=== PATIENT | male | born 1965 | race Caucasian/White ===

== ENCOUNTER 2020-01-01 14:30 | Outpatient (CLI) | payer BC, OTHER, SELFPAY ==
--- NOTE | ~2020-01-01 | CT_ITS ---
EXAMINATION: CT chest wo con DATE: 01/01/2020 15:04 INDICATION: Solitary pulmonary nodule TECHNIQUE: Computed tomography (CT) of the chest was performed without intravenous contrast. The dose -length product (DLP) was 391.54 mGy-cm. Automated exposure control and iterative reconstruction tech nique were employed. COMPARISON: 11/10/2015, 03/14/2009 FINDINGS: There is a chronic calcified nodule of the right upper lobe without significant change. A s table 5 mm nodule is present in the left lower lobe. No new or suspicious pulmonary nodule is identi fied. The lungs are free of focal airspace opacities. There is no pleural effusion or pneumothorax. N o pathologically enlarged thoracic lymph nodes are identified. The heart size is normal. There is mod erate thoracic spondylosis. IMPRESSION: 1. Stable pulmonary nodules, consistent with old granulomatous disease. Reviewed, dictated and finalized at location A.
== END 2020-01-01 14:31 | disposition home or self-care (01) ==
PROVIDERS: PCP Family Medicine; Visit Provider Family Medicine
DX: R91.8 Other nonspecific abnormal finding of lung field (principal)
CPT/HCPCS: 71250

== ENCOUNTER 2022-08-16 01:28 | Day surgery (SDC) | payer BC, OTHER, SELFPAY ==
[2022-08-08 13:37] VITALS: BMI 42.5
--- NOTE | 2022-08-15 15:09 | PM.HPGS ---
History of Present Illness History of Present Illness Consent: Risks, benefits, and alternatives have been discussed and questions answered. Patient agrees to proceed with procedure. Chief complaint: neoplasm screening & history of colon polyps Narrative: Nikita Smith is a 56 year old male Referred for colon cancer screening. about 4 years ago he had 4 polyps removed . He has no gastrointestinal complaints at this time. Review of Systems Review of Systems: All systems reviewed & are unremarkable except as noted in HPI and below PMFSH Past Medical History Medical History Abnormal colonoscopy Benign essential HTN Hypothyroidism (acquired) Mixed hyperlipidemia LUIS ANTONIO (obstructive sleep apnea) Pulmonary nodule Skin tag of perianal region Surgical History Surgical History H/O hemorrhoidectomy Family History Family History Mother Family history of premature coronary heart disease, Onset Age: 46 Hypertension Patient's mother is Father Cerebrovascular accident, Onset Age: 59 Patient's father is Social History Social History Social History: Smoking status: Never smoker Second hand tobacco smoke exposure: No Alcohol intake: current Alcohol use details: occasional - once a week Substance use: never Substance use type: does not use Living arrangements: with family Gender identity (if verbalized by the patient): Male Sexual Orientation (if Verbalized by the Patient): Straight or Heterosexual Spiritual care concerns: No Meds Home Medications and Allergies Home Medications Medication Instructions Recorded Confirmed Type vitamin B complex 1 tablet PO DAILY 08/21/21 08/08/22 History levothyroxine 50 mcg tablet 50 mcg PO DAILY #90 tabs 09/22/21 08/16/22 Rx irbesartan 300 1 tablet PO DAILY #90 tabs 07/03/22 08/08/22 Rx mg-hydrochlorothiazide 12.5 mg tablet gabapentin 100 mg capsule 100 mg PO DAILY 08/08/22 08/08/22 History montelukast 10 mg tablet 10 mg PO DAILY 08/08/22 08/08/22 History rosuvastatin 10 mg tablet 10 mg PO DAILY 08/08/22 08/08/22 History Allergies Allergy/AdvReac Type Severity Reaction Status Date / Time No Known Allergies Allergy Verified 08/16/22 06:20 Exam Resp: Auscultation: clear to auscultation bilaterally Cardio: Rate: regular rate Rhythm: regular rhythm GI: GI Palp: Yes Soft to palpation and No Tenderness to palpation present (GI) Assessment and Plan Assessment and plan (1) Colon cancer screening: Code(s): Z12.11 - Encounter for screening for malignant neoplasm of colon Status: Acute Assessment and Plan: Colonoscopy with possible biopsy or polypectomy or cautery or injection of substances.
[2022-08-16 06:21] VITALS: BP 143/84; PULSE 67; RESP 20; TEMP 36.4; O2SAT 95
[2022-08-16] MEDS: LACTATED RINGERS 1,000 ML 150 ML IV CONT (06:39)
--- NOTE | 2022-08-16 07:00 | WPDANESEPPF ---
Anes - Initial Pre Proc Eval Procedure: Operation Date: 08/16/22 07:30 Proposed Procedures p Screening Colonoscopy - Luis Jeffries MD Date/Time: 08/16/22 07:00 Surgeon: Luis Jeffries MD Pre Op Diagnosis: neoplasm screening & history of colon polyps Patient Data Age: 56 Gender: M Height: 1.83 m Weight: 142.6 kg Last Vital Signs Temp 97.5 F L 08/16/22 06:21 Pulse 67 08/16/22 06:21 Resp 20 08/16/22 06:21 BP 143/84 H 08/16/22 06:21 Pulse Ox 95 08/16/22 06:21 O2 Del Method Room Air 08/16/22 06:21 Allergies Allergy/AdvReac Type Severity Reaction Status Date / Time No Known Allergies Allergy Verified 08/16/22 06:20 Home Medications Medication Instructions Recorded Confirmed Type vitamin B complex 1 tablet PO DAILY 08/21/21 08/08/22 History levothyroxine 50 mcg tablet 50 mcg PO DAILY #90 tabs 09/22/21 08/16/22 Rx irbesartan 300 1 tablet PO DAILY #90 tabs 07/03/22 08/08/22 Rx mg-hydrochlorothiazide 12.5 mg tablet gabapentin 100 mg capsule 100 mg PO DAILY 08/08/22 08/08/22 History montelukast 10 mg tablet 10 mg PO DAILY 08/08/22 08/08/22 History rosuvastatin 10 mg tablet 10 mg PO DAILY 08/08/22 08/08/22 History Patient hx anesthesia problems: none Family hx anesthesia problems: none Results Review: All pre-operative results and documents have been reviewed as part of the pre-operative evaluation. [facility] Past Medical History Medical History (Updated 08/15/22 @ 15:10 by Luis Jeffries MD) Abnormal colonoscopy Benign essential HTN Hypothyroidism (acquired) Mixed hyperlipidemia LUIS ANTONIO (obstructive sleep apnea) Pulmonary nodule Skin tag of perianal region Surgical History Surgical History H/O hemorrhoidectomy Family History Family History Mother Family history of premature coronary heart disease, Onset Age: 46 Hypertension Patient's mother is Father Cerebrovascular accident, Onset Age: 59 Patient's father is Social History Social History (Updated 07/03/22 @ 16:36 by Christin Albrecht) Social History: Smoking status: Never smoker Second hand tobacco smoke exposure: No Alcohol intake: current Alcohol use details: occasional - once a week Substance use: never Substance use type: does not use Living arrangements: with family Gender identity (if verbalized by the patient): Male Sexual Orientation (if Verbalized by the Patient): Straight or Heterosexual Spiritual care concerns: No Anes - Eval Final PreProcedure Day of Procedure 08/16/22 07:00 Patient weight: morbidly obese Heart: regular rate and rhythm Lungs: clear to auscultation Airway: Mallampati scale class III Neurological: alert and oriented Last oral intake: >/= 8 hours ASA classification: III Emergent: no Anesthetic plan: proceed Anesthesia type and monitoring: general GIVS and standard monitoring Results Review: All pre-operative results and documents have been reviewed as part of the pre-operative evaluation. Informed Consent: The patient's anesthetic plan and its attendant risks and benefits were discussed with the patient/family/POA. Questions were solicited and answers provided to the satisfaction of the patient/family/POA.
[2022-08-16] MEDS: SIMETHICONE ORAL SUSPENSION 20 MG/0.3 ML 30 ML BOTTLE 0.6 ML IRRIGATION (07:34)
[2022-08-16 07:42] VITALS: BP 122/78; PULSE 71; RESP 15; O2SAT 95
[2022-08-16 07:52] VITALS: BP 120/75; PULSE 66; RESP 25; O2SAT 95
[2022-08-16 08:02] VITALS: BP 132/82; PULSE 67; RESP 22; O2SAT 98
== END 2022-08-16 08:16 | disposition home or self-care (01) ==
PROVIDERS: PCP Family Medicine; Visit Provider Internal Medicine Gastroenterology
PROC: 0DJD8ZZ Inspection of Lower Intestinal Tract, Via Natural or Artificial Opening Endoscopic (ICD-10-PCS; CPT 45378; principal; 2022-08-16 07:30)
DX: Z12.11 Encounter for screening for malignant neoplasm of colon (principal); D12.4 Benign neoplasm of descending colon; D12.5 Benign neoplasm of sigmoid colon; I10 Essential (primary) hypertension; E03.9 Hypothyroidism, unspecified; E78.5 Hyperlipidemia, unspecified; G47.33 Obstructive sleep apnea (adult) (pediatric)
CPT/HCPCS: 45380; 45385; 88305; J2370; J2704; J7120

== ENCOUNTER 2023-06-11 14:25 | Outpatient (CLI) | payer BC, OTHER, SELFPAY ==
[2023-06-11 15:34] LABS: SARS-CoV-2 RNA PCR Negative (Negative)
== END 2023-06-11 14:26 | disposition home or self-care (01) ==
PROVIDERS: PCP Family Medicine; Visit Provider Physician Assistant
DX: J02.9 Acute pharyngitis, unspecified (principal)
CPT/HCPCS: 87635

== ENCOUNTER 2023-12-11 12:41 | Outpatient (CLI) | payer BC, OTHER, SELFPAY ==
[2023-12-11 13:32] LABS: Influenza A QL RT-PCR Negative (Negative); Influenza B QL RT-PCR Negative (Negative); RSV RNA, RT-PCR Negative (Negative); SARS-CoV-2 RNA PCR Negative (Negative)
== END 2023-12-11 12:42 | disposition home or self-care (01) ==
LOC: ANHLAB 12:43
PROVIDERS: PCP Family Medicine; Visit Provider Physician Assistant
DX: J02.9 Acute pharyngitis, unspecified (principal); Z20.822 Contact with and (suspected) exposure to COVID-19
CPT/HCPCS: 87637

== ENCOUNTER 2024-11-20 14:28 | Outpatient (CLI) | payer BC, SELFPAY ==
--- OUTSIDE RECORDS SUMMARY | 2024-11-20 14:31 | XMS_ITS | Referral Summary ---
Author Organization [facility] Address [address] [place] [address] Care Team Providers Care Balance And Hairspring Assembler Name Role Phone Stephanie Middleton MD Primary Care Provider + Source Comments [facility],non-owned Affiliates and Associated Physician Practices is amultiple site organization consisting of ambulatory clinics and hospital sitesin [place], [place], [place]. This disclosure is being madepursuant to the Care Everywhere program and may not contain all information available regarding this patient. Last updated 18.[facility] Allergies No known active allergies Medications * Be aware that medications may not be up to date on this document. Alwaysverify current medications with the patient. Medication Sig Dispensed Refills Start Date End Date Status losartan - hydroCHLOROthiazide (HYZAAR) 50-12.5 MG tablet Take 1 tablet by mouth once daily 11 09/14/2018 Active montelukast (SINGULAIR) 10 MG tablet TAKE 1 TABLET BY MOUTH ONCE EVERY EVENING 1 09/23/2018 Active losartan-hydroCHLOROthiaz elvis (HYZAAR) 100-12.5 MG tablet Take 1 tablet by mouth once daily 5 10/21/2018 Active Benzonatate (TESSALON PO) Active HYDROcodone-acetaminophen (NORCO) 5-325 MG tablet Take 1 tablet by mouth every 4 hours as needed for Pain 30 tablet 11/14/2018 Active docusate sodium (COLACE) 100 MG capsule Take 1 capsule by mouth once daily 20 capsule 11/14/2018 Active levothyroxine (SYNTHROID) 50 MCG tablet Take 50 mcg by mouth once daily 3 12/22/2018 Active Active Problems No known active problems Social History Tobacco Use Types Packs/Day Years Used Date Smoking Tobacco: Never Smokeless Tobacco: Never Alcohol Use Standard Drinks/Week Comments Yes 1 (1 standard drink = 0.6 oz pur e alcohol) occ Sex and Gender Information Value Date Recorded Sex Assigned at Not on file Gender Identity Not on file Sexual Orientation Not on file Last Filed Vital Signs Vital Sign Reading Time Taken Comments Blood Pressure 134/85 01/01/2019 3:39 PM CDT Pulse 78 01/01/2019 3:39 PM CDT Temperature 37.1 C (98.7 F) 01/01/2019 3:39 PM CDT Respiratory Rate 20 01/01/2019 3:39 PM CDT Oxygen Saturation 97% 01/01/2019 3:39 PM CDT Inhaled Oxygen Concentration - - Weight 129.7 kg (286 lb) 01/01/2019 3:39 PM CDT Height 188 cm (6' 2 ) 01/01/2019 3:39 PM CDT Body Mass Index 36.72 01/01/2019 3:39 PM CDT Plan of Treatment Not on file Procedures Procedure Name Priority Date/Time Associated Diagnosis Comments BASIC METABOLIC PANEL (CALCIUM TOTAL) STAT 11/10/2018 2:02 PM [facility] Pre-op testing from Last 3 Months or Most Recently Relevant to Health Maintenance Results * BASIC METABOLIC PANEL (CALCIUM TOTAL) (11/10/2018 2:02 PM [facility]) Glucose 94 74 - 106 mg/dL 11/10/2018 2:58 PM [facility] Sodium 139 136 - 145 mmol/L 11/10/2018 2:58 PM [facility] Potassium 3.5 3.5 - 5.1 mmol/L 11/10/2018 2:58 PM [facility] Chloride 104 98 - 107 mmol/L 11/10/2018 2:58 PM [facility] CO2 27 22 - 31 mmol/L 11/10/2018 2:58 PM [facility] Calcium 8.6 8.5 - 10.1 mg/dL 11/10/2018 2:58 PM [facility] Anion Gap 8 8 - 16 mmol/L 11/10/2018 2:58 PM [facility] BUN 14 7 - 21 mg/dL 11/10/2018 2:58 PM [facility] Creatinine 0.86 0.50 - 1.30 mg/dL 11/10/2018 2:58 PM [facility] eGFR by MDRD >60 >60 mL/min/1.7 3m2 11/10/2018 2:58 PM [facility] eGFR by MDRD >60 >60 mL/min/1.7 3m2 11/10/2018 2:58 PM [facility] Blood BLOOD SPECIMEN / Unknown Venipuncture / Unknown 11/10/2018 2:02 PM [facility] 11/10/2018 2:24 PM [facility] Glenn Corona MD LAB - CHEMISTRY MARTHA DA SILVA [facility] Organization Address City/State/ZIP Co de Phone Number [facility] [address] [place] [address] from Last 3 Months or Most Recently Relevant to Health Maintenance Advance Directives * Full Code (Latest Code Status on File) Date Activated Date Inactivated Comments 11/14/2018 7:11 AM 11/14/2018 2:30 PM Care Teams Balance And Hairspring Assembler Relationship Specialty Start Date End Date Stephanie Middleton MD [address] [place] [address] PCP - General 10/02/18
--- OUTSIDE RECORDS SUMMARY | 2024-11-20 14:31 | XMS_ITS | Patient Health Summary ---
Author Organization [facility] Address [address] [place] [address] Care Team Providers Care Solutions Manager Name Role Phone Stephanie Middleton MD Primary Care Provider + Note from [facility],non-owned Affiliates and Associated Physician Practices is amultiple site organization consisting of ambulatory clinics and hospital sitesin [place], [place], [place] and [place]. This disclosure is being madepursuant to the Care Everywhere program and may not contain all information available regarding this patient. Last updated 18.[facility] Jott Allergies No known active allergies Medications * Be aware that medications may not be up to date on this document. Alwaysverify current medications with the patient. * losartan - hydroCHLOROthiazide (HYZAAR) 50-12.5 MG tablet(Started 09/14/2018) Take 1 tablet by mouth once daily 11 refills left * montelukast (SINGULAIR) 10 MG tablet(Started 09/23/2018) TAKE 1 TABLET BY MOUTH ONCE EVERY EVENING 1 refill left * losartan-hydroCHLOROthiazide (HYZAAR) 100-12.5 MG tablet(Started 10/21/2018) Take 1 tablet by mouth once daily 5 refills left * Benzonatate (TESSALON PO) * HYDROcodone-acetaminophen (NORCO) 5-325 MG tablet(Started 11/14/2018) Take 1 tablet by mouth every 4 hours as needed for Pain * docusate sodium (COLACE) 100 MG capsule(Started 11/14/2018) Take 1 capsule by mouth once daily * levothyroxine (SYNTHROID) 50 MCG tablet(Started 12/22/2018) Take 50 mcg by mouth once daily 3 refills left Active Problems No known active problems Social [...] Mass Index 36.72 01/01/2019 3:39 PM CDT Procedures * CARDIAC RHYTHM STRIP ORDER(Performed 11/19/2018) * ENDOTRACHEAL TUBE NOTE(Performed 11/14/2018) * PATHOLOGY TISSUE EXAM (STL)(Performed 11/14/2018) Performed for Diagnosis unknown * HEMORRHOIDECTOMY(Performed 11/14/2018) Performed for Diagnosis unknown * EKG 12-LEAD(Performed 11/10/2018) Performed for Pre-op testing * XR CHEST 2VW(Performed 11/10/2018) Performed for Pre-op testing * BASIC METABOLIC PANEL (CALCIUM TOTAL)(Performed 11/10/2018) Performed for Pre-op testing * CBC W AUTO DIFFERENTIAL(Performed 11/10/2018) Performed for Pre-op testing Results * CARDIAC RHYTHM STRIP ORDER (11/19/2018 10:14 PM INSTALLER HELPER) Narrative 11/19/2018 10:14 PM INSTALLER HELPER Ordered by an unspecified provider. Scanned Document CARDIAC SERVICES ORD ERABLES * ENDOTRACHEAL TUBE NOTE (11/14/2018 2:37 PM INSTALLER HELPER) Narrative Bee Singh DO - 11/14/2018 2:37 PM INSTALLER HELPER Vicente Justice APRN-INFANTRY OPERATIONS SPECIALIST 11/14/2018 10:23 AM Endotracheal Tube Placement: Patient Location: OR. Intubation Event Date/Time: 11/14/2018 9:48 AM Procedure: intubation (04175). Procedure Section: Sedation: IV sedation. Indications for Airway Management: airway protection Pretreatment: 100% O2. Induction: standard IV Patient Position: sniffing Mask Ventilation: easy and difficult and required 2 people (2 handed). Blade Type: Chloe Blade Size: 3 Laryngoscopy View: grade 2 (partial cords) Intubation Adjuncts: video laryngoscope Device: endotracheal tube Placement: oral Tube type: cuff - inflated Tube Size (FR): 8 Depth of Insertion (CM): 22 Measured From: gums Cuff volume (mL): 8 Cuff Inflated With: air Number of Attempts: 2. Ventilation between attempts: Yes. Placement Verified By: direct visualization, bilateral breath sounds, chest auscultation, CO2 monitor and CO2 detector Tube secured with: adhesive tape. Difficult Airway? No. Procedure Start Time: 11/14/2018 9:48 AM. Staff Section Anesthesia Provider: VICENTE JUSTICE, Performed the procedure Provider #1: BEE SINGH, Performed the procedure. Bee Singh DO GENERAL ANESTHESIA O RDERABLES * GROSS + MICRO EXAM (STL) (11/14/2018 10:49 AM INSTALLER HELPER) Case Report Surgical Pathology Report Case: [id number] Authorizing Provider: Glenn Corona MD Collected: 11/14/2018 10:49 AM Ordering Location: [facility] Received: 11/14/2018 01:13 PM Pathologist: Ran Segovia MD Specimen: Hemorrhoids, HEMORRHOID 11/17/2018 11:06 AM [facility] Final Diagnosis Hemorrhoids, hemorrhoidectomy: -- Hemorrhoids MC 11/17/2018 11:06 AM [facility] Gross Description The specimen is received fixed in formalin in one container labeled with the patient's name Nikita Hernandez and hemorrhoids consists of a 3.5 x 2.0 x 1.5 cm soft, pink-munoz tissue. One side of the specimen is surfaced by pink-munoz skin. The surgical resection margin is inked green. The specimen is serially sectioned and entirely submitted in cassettes A1 to A3. OEM/me 11/17/2018 11:06 AM [facility] Microscopic Description Sections reveal squamous lined mucosa with vascular dilatation with with congestion and fresh hemorrhage, consistent with hemorrhoids. No evidence of dysplasia or malignancy is seen. MC 11/17/2018 11:06 AM [facility] Disclaimer All histochemical and/or immunohistochemical results are interpreted with controls that demonstrate appropriate staining reactions before reporting results. Note on use of immunocytochemistry reagents: This test was developed and its performance characteristic determined by [facility], Department of Laboratory Medicine. It has not been cleared or approved by the U.S. Food and Drug Administration (FDA). The FDA has determined that such clearance or approval is not necessary. The test is used for clinical purpose. It should not be regarded as investigational or for research. This laboratory is certified to perform high complexity testing. 11/17/2018 11:06 AM [facility] Embedded Images 11/17/2018 11:06 AM [facility] Pathology/Cytolo gy HEMORRHOID TISSUE SPECIMEN / Unknown 11/14/2018 10:49 AM INSTALLER HELPER 11/14/2018 1:13 PM [facility] Glenn Corona MD LAB - PATHOLOGY/CYTO LOGY ORDERABLES [facility] [address] [place] [address] * EKG 12-LEAD (11/10/2018 3:14 PM INSTALLER HELPER) Ventricular Rate 71 BPM [facility] Atrial Rate 71 BPM [facility] P-R Interval 160 ms [facility] QRS Duration ms 110 ms [facility] Q-T Interval ms 418 ms [facility] QTC Calculation (Bezet) 454 ms [facility] Calculated P [place] 27 degrees [facility] MUSE Calculated R [place] -13 degrees [facility] Calculated T [place] 55 degrees [facility] Interpretation EKG NORMAL SINUS RHYTHM NONSPECIFIC T WAVE ABNORMALITY ABNORMAL ECG NO PREVIOUS ECGS AVAILABLE Confirmed by MD EZEKIEL, SEE Loving ([id number]) on 11/11/2018 7:16:03 AM [facility] 11/10/2018 3:14 PM INSTALLER HELPER 11/11/2018 7:16 AM INSTALLER HELPER Glenn Corona MD ECG ORDERABLES [facility] * XR CHEST 2VW (11/10/2018 2:45 PM INSTALLER HELPER) Anatomical Region Laterality Modality Chest Radiographic Moriah ging 11/10/2018 2:54 PM INSTALLER HELPER Impressions 11/10/2018 3:56 PM INSTALLER HELPER Right lung mass. Edited by Marisa Quintero on 11/10/2018 3:45 PM Reading Radiologist: Skip Sanderson MD on 11/10/2018 at 3:56 PM Narrative 11/10/2018 3:56 PM INSTALLER HELPER CHEST X-RAY 2 VIEWS. HISTORY: Preop chest. Two views of the chest show a heart size in the normal range for technique. There is no infiltrate seen. There is a mass projected in the middle lobe having a diameter of about 28 mm. There is no evidence for pleural effusion. Procedure Note Skip Sanderson MD - 11/10/2018 CHEST X-RAY 2 VIEWS. HISTORY: Preop chest. Two views of the chest show a heart size in the normal range for technique. There is no infiltrate seen. There is a mass projected in the middle lobe having a diameter of about 28 mm. There is no evidence for pleural effusion. IMPRESSION Right lung mass. Edited by Marisa Quintero on 11/10/2018 3:45 PM Reading Radiologist: Skip Sanderson MD on 11/10/2018 at 3:56 PM Glenn Corona MD DIAGNOSTIC IMAGING O RDERABLES * CBC W AUTO DIFFERENTIAL (11/10/2018 2:02 PM INSTALLER HELPER) WBC 10.0 4.4 - 10.7 x10E9/L 11/10/2018 2:46 PM INSTALLER HELPER [facility] WBC Corrected x10E9/L 11/10/2018 2:46 PM INSTALLER HELPER [facility] RBC 5.03 3.80 - 5.40 x10E12/L 11/10/2018 2:46 PM INSTALLER HELPER [facility] Hemoglobin 15.2 12.0 - 17.6 gm/dL 11/10/2018 2:46 PM INSTALLER HELPER [facility] Hematocrit 44.4 35.2 - 51.7 % 11/10/2018 2:46 PM [facility] MCV 88.3 80.7 - 98.3 fl 11/10/2018 2:46 PM [facility] MCH 30.2 26.7 - 34.0 pg 11/10/2018 2:46 PM [facility] MCHC 34.2 30.8 - 35.9 gm/dL 11/10/2018 2:46 PM [facility] Platelet Count 266 153 - 416 x10E9/L 11/10/2018 2:46 PM [facility] RDW-CV 12.5 12.1 - 14.9 % 11/10/2018 2:46 PM [facility] MPV 9.4 9.4 - 12.9 fl 11/10/2018 2:46 PM [facility] Neutrophils % 60.6 44.0 - 73.0 % 11/10/2018 2:46 PM [facility] Lymphocytes % 29.4 20.0 - 43.0 % 11/10/2018 2:46 PM [facility] Monocytes % 7.6 5.0 - 13.0 % 11/10/2018 2:46 PM [facility] Eosinophils % 1.4 0.0 - 6.0 % 11/10/2018 2:46 PM [facility] Basophils % 0.7 0.0 - 2.0 % 11/10/2018 2:46 PM [facility] Immature Granulocytes 0.3 0 - 1 % 11/10/2018 2:46 PM [facility] Neutrophil Absolute 6.03 2.01 - 7.14 x10E9/L 11/10/2018 2:46 PM [facility] Lymphocytes Absolute 2.93 1.07 - 3.94 x10E9/L 11/10/2018 2:46 PM [facility] Monocytes Absolute 0.76 0.26 - 1.07 x10E9/L 11/10/2018 2:46 PM [facility] Eosinophils Absolute 0.14 0 - 0.47 x10E9/L 11/10/2018 2:46 PM [facility] Basophils Absolute 0.07 0 - 0.08 x10E9/L 11/10/2018 2:46 PM [facility] Immature Granulocytes Absolute 0.03 0.00 - 0.06 x10E9/L 11/10/2018 2:46 PM [facility] nRBC Auto 0 /100 WBC 11/10/2018 2:46 PM [facility] Blood BLOOD SPECIMEN / Unknown Venipuncture / Unknown 11/10/2018 2:02 PM INSTALLER HELPER 11/10/2018 2:24 PM INSTALLER HELPER Glenn Corona MD LAB - HEMATOLOGY ORD ERABLES Performing Organization Address [facility] Co de Phone Number [facility] [address] [place] [address] * BASIC METABOLIC PANEL (CALCIUM TOTAL) (11/10/2018 2:02 PM INSTALLER HELPER) [facility] Glucose 94 74 - 106 mg/dL 11/10/2018 2:58 PM [facility] Sodium 139 136 - 145 mmol/L 11/10/2018 2:58 PM [facility] Potassium 3.5 3.5 - 5.1 mmol/L 11/10/2018 2:58 PM [facility] Chloride 104 98 - 107 mmol/L 11/10/2018 2:58 PM [facility] CO2 27 22 - 31 mmol/L 11/10/2018 2:58 PM [facility] Calcium 8.6 8.5 - 10.1 mg/dL 11/10/2018 2:58 PM [facility] Anion Gap 8 8 - 16 mmol/L 11/10/2018 2:58 PM [facility] BUN 14 7 - 21 mg/dL 11/10/2018 2:58 PM [facility] Creatinine 0.86 0.50 - 1.30 mg/dL 11/10/2018 2:58 PM [facility] eGFR by MDRD >60 >60 mL/min/1.7 3m2 11/10/2018 2:58 PM [facility] eGFR by MDRD >60 >60 mL/min/1.7 3m2 11/10/2018 2:58 PM [facility] Blood BLOOD SPECIMEN / Unknown Venipuncture / Unknown 11/10/2018 2:02 PM INSTALLER HELPER 11/10/2018 2:24 PM INSTALLER HELPER Glenn Corona MD LAB - CHEMISTRY ORDE AVINASH [facility] [address], [place] [id number] Care Teams Solutions Manager Relationship Specialty Start Date End Date Stephanie Middleton MD [address] [place] [address] PCP - General 10/02/18
--- OUTSIDE RECORDS SUMMARY | 2024-11-20 14:31 | XMS_ITS | Clinical Summary ---
Author Organization [facility] Address [address] [place] [address] Care Team Providers Care Alarm Operator Name Role Phone Stephanie Middleton MD Primary Care Provider + Source Comments [facility],non-owned Affiliates and Associated Physician Practices is amultiple site organization consisting of ambulatory clinics and hospital sitesin [place], [place], [place]. This disclosure is being madepursuant to the Care Everywhere program and may not contain all information available regarding this patient. Last updated 18.[facility] Allergies No known active allergies Medications * [...] Active Active Problems No known active problems Family History Medical History Relation Name Comments Cancer - Other Maternal Grandmother Relation Name Status Comments Maternal Grandmother Social History Tobacco Use Types Packs/Day Years [...] 01/01/2019 3:39 PM CDT Plan of Treatment Health Maintenance Due Date Last Done Comments COLOGUARD (AGES 45-75) - COL ON CA SCREENING 1966 COLON MONITORING 1966 COLONOSCOPY - COLON CA SCREENING 1966 CT COLONOGRAPHY - COLON CA SCREENING 1966 Colorectal Cancer Screening 1966 FIT - COLON CA SCREENING 1966 FLEX SIG - COLON CA SCREENING 1966 LIPID TESTING 1966 HIV SCREENING 1981 HEPATITIS C SCREENING 11/16/1984 DTAP/TDAP/TD VACCINES (1 - Tdap) 1985 HEPATITIS B VACCINE (1 of 3 - 19+ 3-dose series) 1985 PNEUMOCOCCAL VACCINE 50+ (1 of 1 - PCV) 2016 ZOSTER VACCINE (1 of 2) 2016 SCREENING FOR DIABETES 11/10/2021 11/10/2018 COVID-19 VACCINE ( - 2023-2 5 season) 2024 INFLUENZA VACCINE (#1) 2024 DEPRESSION SCREENING 10/14/2024 HIB VACCINE Aged Out No longer eligi ble based on patient's age to complete this topic HPV VACCINE Aged Out No longer eligi ble based on patient's age to complete this topic MENINGOCOCCAL (Group B) VACCINE Aged Out No longer eligible based on patient's age to complete this topic MENINGOCOCCAL VACCINE Aged Out No yasir arnulfo eligible based on patient's age to complete this topic PNEUMOCOCCAL VACCINE Aged Out No long er eligible based on patient's age to complete this topic Procedures Procedure Name Priority Date/Time Associated Diagnosis Comments BASIC METABOLIC PANEL (CALCIUM TOTAL) STAT 11/10/2018 2:02 PM WATER FILTERER HELPER Pre-op testing from Last 3 Months or Most Recently Relevant to Health Maintenance Results * BASIC METABOLIC PANEL (CALCIUM TOTAL) (11/10/2018 2:02 PM WATER FILTERER HELPER) Glucose 94 74 - 106 mg/dL 11/10/2018 2:58 PM [facility] Sodium 139 136 - 145 mmol/L 11/10/2018 2:[address] [facility] Potassium 3.5 3.5 - 5.1 mmol/L 11/10/2018 2:[address] [facility] Chloride 104 98 - 107 mmol/L 11/10/2018 2:[address] [facility] CO2 27 22 - 31 mmol/L 11/10/2018 2:[address] [facility] Calcium 8.6 8.5 - 10.1 mg/dL 11/10/2018 2:[address] [facility] Anion Gap 8 8 - 16 mmol/L 11/10/2018 2:[address] [facility] BUN 14 7 - 21 mg/dL 11/10/2018 2:[address] [facility] Creatinine 0.86 0.50 - 1.30 mg/dL 11/10/2018 2:[address] [facility] eGFR by MDRD >60 >60 mL/min/1.7 3m2 11/10/2018 2:[address] [facility] eGFR by MDRD >60 >60 mL/min/1.7 3m2 11/10/2018 2:[address] [facility] Blood BLOOD SPECIMEN / Unknown Venipuncture / Unknown 11/10/2018 2:02 PM WATER FILTERER HELPER 11/10/2018 2:24 PM WATER FILTERER HELPER Glenn Corona MD LAB - CHEMISTRY [facility] [address] [place] [address] from Last 3 Months or Most Recently Relevant to Health Maintenance Advance Directives * Full Code (Latest Code Status on File) Date Activated Date Inactivated Comments 11/14/2018 7:11 AM 11/14/2018 2:30 PM Care Teams Alarm Operator Relationship Specialty Start Date End Date Stephanie Middleton MD [address] [place] [address] PCP - General 10/02/18
--- OUTSIDE RECORDS SUMMARY | 2024-11-20 14:31 | XMS_ITS | Continuity of Care Document ---
Author Name [facility] Organization [facility] Care Team Providers Care Rn Transplant Name Role Phone [facility] Unavailable Unavailable Problems Combined list of problems from Department of Defense and Veterans Affairs facilities. It does not include entries that were removed or entered in error. Problem Status Onset Date Problem Type Date of Resolution Comments Source visit for: services physical Inactive Condition DoD allergic rhinitis Active Condition DoD pulmonary nodule single Active Condition DoD lung mass Active Condition [facility] visit for: occupational health / fitness exam Inactive Condition [facility] visit for: screening exam ear disorders Inactive Condition [facility] abdominal pain in the right upper belly (RUQ) Inactive Condition [facility] upper respiratory infection Inactive Condition [facility] visit for: administrative purpose Inactive Condition [facility] costochondritis (Tietze's syndrome) Active Condition [facility] sore throat Inactive Condition [facility] Medications Combined list of outpatient medications from Department of Defense and Veterans Affairs facilities.Medications provided include 1) outpatient medications from the last 15 months, and 2) patient-reported medications. Medication Details Route Status Patient Instructions Prescription Expires Prescription Number Last Dispense Date Ordering Provider Order Date Order Qty Source FUROSEMIDE (furosemide ), 20 MG, TABLET, ORAL, LEADING [employer]AR[employer], 1000 ea. BOTTLE Active [id number] 2023 90 Pharmac y Data Transac tion Service Facilit y FUROSEMIDE (furosemide ), 20 MG, TABLET, ORAL, LEADING PHARMA, 1000 ea. BOTTLE Active [id number] 4 2023 90 Pharmac y Data Transac tion Service Facilit y GABAPENTIN (gabapentin ), 100 MG, CAPSULE, ORAL, [employer] 500 ea. BOTTLE Active [id number] 4 2023 180 Pharmac y Data Transac tion Service Facilit y GABAPENTIN (gabapentin ), 100 MG, CAPSULE, ORAL, CIPLA [email or web address] 500 ea. BOTTLE Active [id number] 2023 180 Pharmac y Data Transac tion Service Facilit y IVERMECTIN (IVERMECTIN ), 3 MG, TABLET, ORAL, [facility] PHAR, 20 ea. BLIST PACK Cancele d [id number] : 2023 0 Pharmac y Data Transac tion Service Facilit y IVERMECTIN (IVERMECTIN ), 3 MG, TABLET, ORAL, [facility] PHAR, 20 ea. BLIST PACK Active [id number] 4 2023 45 Pharmac y Data Transac tion Service Facilit y LEVOTHYROXI NE SODIUM (LEVOTHYROX INE SODIUM), 50MCG, TABLET, ORAL, MYLAN, 1000 ea. BOTTLE Cancele d [id number] : 2023 0 Pharmac y Data Transac tion Service Facilit y MONTELUKAST SODIUM (MONTELUKAS T SODIUM), 10 MG, TABLET, ORAL, AUROBINDO PHARM, 90 ea. BOTTLE Cancele d [id number] : 2023 0 Pharmac y Data Transac tion Service Facilit y MONTELUKAST SODIUM (MONTEL[place]AS T SODIUM), 10 MG, TABLET, ORAL, AUROBINDO PHARM, 90 ea. BOTTLE Active [id number] 2023 90 Pharmac y Data Transac tion Service Facilit y PERMETHRIN (PERMETHRIN ), 5%, CREAM(GM), TOPICAL, [employer] 60 g TUBE Active [id number] 2023 60 Pharmac y Data Transac tion Service Facilit y SPIRONOLACT ONE (SPIRONOLAC TONE), 50 MG, TABLET, ORAL, AMNEAL PHARMACE, 100 ea. BOTTLE Cancele d [id number] : 2023 0 Pharmac y Data Transac tion Service Facilit y SPIRONOLACT ONE (SPIRONOLAC TONE), 50 MG, TABLET, ORAL, AMNEAL PHARMACE, 100 ea. BOTTLE Active [id number] 2023 90 Pharmac y Data Transac tion Service Facilit y SPIRONOLACT ONE (SPIRONOLAC TONE), 50 MG, TABLET, ORAL, AMNEAL PHARMACE, 100 ea. BOTTLE Active [id number] 2023 90 Pharmac y Data Transac tion Service Facilit y Allergies, Adverse Reactions, Alerts Combined list of allergies from Department of Defense and Veterans Affairs facilities. It does not include entries that were removed or entered in error. Substance Category Reaction Severity Reaction type Status Date Reported Comments Source No Known Allergies Drug allergy (disorder) active 10/26/2008 [facility] Immunizations Combined list of available immunizations from the Department of Defense and Veterans Affairs facilities. Immunization Series Date Given Administered By Site Reaction Lot Number CVX Code Drug Radiologic Technology Teacher Status Comments Source influenza virus vaccine, whole virus 1 2004 Unknown, Provider [id number] [employer] (PWJ) complet ed influenza virus vaccine, whole virus DoD influenza virus vaccine, live, attenuated, for intranasal use 1 2004 Unknown, Provider [id number] [employer]. (MED) complet ed influenza virus vaccine, live, attenuate d, for intranasa l use DoD influenza virus vaccine, whole virus 1 2002 Unknown, Provider [id number] [employer] (PWJ) complet ed influenza virus vaccine, whole virus DoD influenza virus vaccine, whole virus 1 2002 Unknown, Provider [id number] [employer] (PWJ) complet ed influenza virus vaccine, whole virus DoD influenza virus vaccine, whole virus 1 2001 Unknown, Provider [id number] Sanofi Pasteur ([facility]) complet ed influenza virus vaccine, whole virus DoD influenza virus vaccine, whole virus 1 2001 Unknown, Provider [id number] Sanofi Pasteur ([facility]) complet ed influenza virus vaccine, whole virus DoD typhoid Vi capsular polysaccharid e vaccine 1 2001 Unknown, Provider [id number] Sanofi Pasteur ([facility]) complet ed typhoid Vi capsular polysacch aride vaccine DoD tuberculin skin test; purified protein derivative solution, intradermal 1 2000 Unknown, Provider [id number] Sanofi Pasteur ([facility]) complet ed tuberculi n skin test; purified protein derivativ e solution, intraderm al DoD yellow fever vaccine 1 2000 Unknown, Provider [id number] Abdirashidt (CON) complet ed yellow fever vaccine DoD meningococcal polysaccharid e vaccine (MPSV4) 1 2000 Unknown, Provider [id number] Cuca (CON) complet ed meningoco ccal polysacch aride vaccine (MPSV4) [facility] influenza virus vaccine, whole virus 1 1999 Unknown, Provider [id number] 16 Sean (EVN) complet ed influenza virus vaccine, whole virus DoD typhoid vaccine, parenteral, other than acetone-kille d, dried 1 1999 Unknown, Provider [id number] [facility] ([facility]) complet ed typhoid vaccine, parentera l, other than acetone-k illed, dried DoD tuberculin skin test; purified protein derivative solution, intradermal 1 1999 Unknown, Provider [id number] Cuca (CON) complet ed tuberculi n skin test; purified protein derivativ e solution, intraderm al DoD influenza virus vaccine, whole virus 1 1998 Unknown, Provider 16 () complet ed influenza virus vaccine, whole virus DoD influenza virus vaccine, whole virus 1 1997 Unknown, Provider [id number] [facility] ([facility]) complet ed influenza virus vaccine, whole virus DoD tuberculin skin test; purified protein derivative solution, intradermal 1 1996 Unknown, Provider CON 96 Cuca (CON) complet ed tuberculi n skin test; purified protein derivativ e solution, intraderm al DoD influenza virus vaccine, whole virus 1 1996 Unknown, Provider [id number] 16 Cuca (CON) complet ed influenza virus vaccine, whole virus DoD typhoid vaccine, parenteral, other than acetone-kille d, dried 1 1996 Unknown, Provider [id number] Cuca (CON) complet ed typhoid vaccine, parentera l, other than acetone-k illed, dried [facility] tetanus and diphtheria toxoids, adsorbed, preservative free, for adult use (2 Lf of tetanus toxoid and 2 Lf of diphtheria toxoid) 1 1996 Unknown, Provider 09 () complet ed tetanus and diphtheri a toxoids, adsorbed, preservat dani free, for adult use (2 Lf of tetanus toxoid and 2 Lf of diphtheri a toxoid) [facility] hepatitis A vaccine, adult dosage 2 1995 Unknown, Provider [id number] Cuca (CON) complet ed hepatitis A vaccine, adult dosage [facility] meningococcal polysaccharid e vaccine (MPSV4) 1 1995 Unknown, Provider [id number] Cuca (CON) complet ed meningoco ccal polysacch aride vaccine (MPSV4) DoD yellow fever vaccine 1 1990 Unknown, Provider [id number] Cuca (CON) complet ed yellow fever vaccine DoD typhoid vaccine, parenteral, acetone-kille d, dried ([place]. ) 1 1990 Unknown, Provider 53 () complet ed typhoid vaccine, parentera l, acetone-k illed, dried ([place]. ) DoD trivalent poliovirus vaccine, live, oral 1 1986 Unknown, Provider 02 () complet ed trivalent polioviru s vaccine, live, oral DoD measles, mumps and rubella virus vaccine 1 1986 Unknown, Provider 03 () complet ed measles, mumps and rubella virus vaccine DoD Encounters Combined list of: 1) Encounters from Department of Veterans Affairs facilities going backup to the last 18 months, not all VA inpatient encounters are included; 2) Encounters from the Department of Defense facilities going backup to 280 months. Location Location Details Encounter Type Encounter Number Reason For Visit Attending Provider ADM Date DC Date Status Disposition Source [facility]([address]) OUTPATIENT [id number] stomach pain TYE GALLOWAY 10/27 Released w/o Limitations [facility] [address] [facility]([address]) OUTPATIENT [id number] throat culture MICHAEL SALAZAR 12/08 Released w/o Limitations [facility] [address] [facility]) [facility]([address]) OUTPATIENT [id number] R UQ rib pain no improve ment TYE GALLOWAY 12/27 Released w/o Limitations [facility]([place] [address] [facility]) [facility]([address]) OUTPATIENT [id number] pha PEREZ CALLAWAY 12/30 Released w/o Limitations [facility]([place] [address] [facility]) [facility]([address]) TELE CONSULT [id number] pulmona ry nodule TYE GALLOWAY 12/30 [facility]) [facility]([address] [facility]) TELE CONSULT [id number] Wants CT Scan results [phone]/ [phone] [id number] MICHAEL SALAZAR 01/20 [facility]) [facility]([address] [facility]) OUTPATIENT [id number] pain in side. MICHAEL SALAZAR 03/07 Released w/o Limitations [facility]) [facility]([address] [facility]) TELE CONSULT [id number] Caro's Pt: CT results [phone] GRACIE GONZALEZ 04/19 [facility]) [facility]([address]) OUTPATIENT [id number] flu symptom s MICHAEL SALAZAR 06/20 Released w/o Limitations [facility]) [facility]([address]) OUTPATIENT [id number] RUQ adb pain has returne d AFSHIN ERNANDEZ 08/14 Released w/o Limitations [facility]) [facility]) OUTPATIENT [id number] CEASAR ARDON 08/28 Released w/o Limitations [facility]) [facility]([address]) OUTPATIENT [id number] very bad cold/co ugh/con gestion MICHAEL SALAZAR 09/13 Released w/o Limitations [facility]) [facility]([address]) TELE CONSULT [id number] scot salazar scan, [phone] GRACIE GONZALEZ 11/01 [facility]) [facility]([address]) OUTPATIENT [id number] JERICA Marvin 12/20 Released w/o Limitations [facility]) OUTPATIENT [id number] annual BENIGNO MOHRWendi Rainey 03/30 Released w/o Limitations [facility]) [facility]( 3 Family [facility]) TELE CONSULT [id number] Rakan Pt; Needs ref for repeat CT of Chest [phone] GRACIE GONZALEZ 05/09 [facility]( 3 Family [facility]) OUTPATIENT [id number] F/U on CT of chest XAVIER BLEDSOE 06/01 Released w/o Limitations [facility]) OUTPATIENT [id number] sinus infecti on AFSHIN ERNANDEZ L 06/20 Sick at Home/Quarter s [facility]) [facility]([address]) OUTPATIENT [id number] retirem ent physica l RAKAN XAVIER M 07/20 Released w/o Limitations [facility]) [facility] Outpatient Encounter [id number] 03/25 [facility] Procedures Combined list of: 1) Procedures from Department of [facility] facilities going back up to thelast 18 months, not all VA non-surgical procedures are included; 2) All procedures from the Department of Defense facilities. Procedure Procedure Type Code Date Perfomer Comments [facility] PURE TONE AUDIOMETRY (THRESHOLD); AIR ONLY 03/30/2005 DoD PURE TONE AUDIOMETRY (THRESHOLD); AIR ONLY 08/28/2004 DoD SPHYGMOMANOMETER/BL OOD PRESSURE APPARATUS WITH CUFF AND STETHOSCOPE 12/19/2001 DoD PURE TONE AUDIOMETRY (THRESHOLD); AIR ONLY 11/27/2001 DoD SHAVING OF EPIDERMAL OR DERMAL LESION, SINGLE LESION, TRUNK, ARMS OR LEGS; LESION DIAMETER 0.6 TO 1.0 CM 02/12/2001 DoD SHAVING OF EPIDERMAL OR DERMAL LESION, SINGLE LESION, SCALP, NECK, HANDS, FEET, GENITALIA; LESION DIAMETER 0.6 TO 1.0 CM 12/27/2000 DoD UNLISTED SPECIAL SERVICE, PROCEDURE OR REPORT 11/26/2000 DoD SHAVING OF EPIDERMAL OR DERMAL LESION, SINGLE LESION, SCALP, NECK, HANDS, FEET, GENITALIA; LESION DIAMETER 0.5 CM OR LESS 11/22/2000 DoD CONTROL NASAL HEMORRHAGE, POSTERIOR, WITH POSTERIOR NASAL PACKS AND/OR CAUTERY, ANY METHOD; INITIAL 11/15/2000 DoD UNLISTED SPECIAL SERVICE, PROCEDURE OR REPORT 11/13/2000 DoD SCREENING TEST, PURE TONE, AIR ONLY 11/12/2000 DoD UNLISTED SPECIAL SERVICE, PROCEDURE OR REPORT 11/07/2000 DoD UNLISTED SPECIAL SERVICE, PROCEDURE OR REPORT 10/25/2000 DoD UNLISTED SPECIAL SERVICE, PROCEDURE OR REPORT 10/23/2000 DoD UNLISTED SPECIAL SERVICE, PROCEDURE OR REPORT 08/29/2000 DoD Threshold Audiogram (Pure Tone) Threshold Audiogram (Pure Tone) [id number] 03/30/2005 [facility] Threshold Audiogram (Pure Tone) Threshold Audiogram (Pure Tone) [id number] 08/28/2004 CEASAR ARDON DoD Social History Combined list of available smoking, tobacco, and other social history from Department of Defense and Veterans Affairs facilities. Social History Type Response Date Comment Sour e This section is an empty social history section. DoD
== END 2024-11-20 14:29 | disposition home or self-care (01) ==
LOC: ANHAUDIO 14:28
PROVIDERS: PCP Family Medicine; Visit Provider Physician Assistant
DX: H90.3 Sensorineural hearing loss, bilateral (principal); H93.13 Tinnitus, bilateral
CPT/HCPCS: 92557; 92567

== ENCOUNTER 2025-01-18 15:36 | Outpatient (CLI) | payer BC, OTHER, SELFPAY ==
--- NOTE | ~2025-01-18 | CT_ITS ---
CT Scan of the Chest without Contrast: Clinical Indication: Pulmonary nodule Technique: Contiguous sections were acquired throughout the chest without intravenous contrast. Dose reduction technique was used on this scan by utilizing automated exposure control and iterative recon struction technique. The dose-length product (DLP) was 627.13 mGy-cm. COMPARISON: 01/01/2020 Findings: There is no evidence of any significant mediastinal, hilar or axillary lymphadenopathy. The mediastin al soft tissues appear normal. There is no evidence of pleural or pericardial effusion. Stable 2.8 x 2.3 cm lobulated nodule with central coarse calcification the right middle lobe, compati ble with benign nodule, possibly hamartoma or granuloma. Images through the upper abdomen reveal no abnormalities. Impression: Stable 2.8 cm pulmonary nodule in the right middle lobe, as above, compatible with benign lesion. Reviewed, dictated and finalized at location . Impression: Stable 2.8 cm pulmonary nodule in the right middle lobe, as above, compatible w ith benign lesion.
--- OUTSIDE RECORDS SUMMARY | 2025-01-18 17:36 | XMS_ITS | Continuity of Care Document ---
Author Name [facility] Organization [facility] Care Team Providers Care Family Program Specialist Name Role Phone [facility] Unavailable Unavailable Encounters Combined list of: 1) Encounters from Department of Veterans Affairs facilities going backup to the last 18 months, not all VA inpatient encounters are included; 2) Encounters from the Department of Defense facilities going backup to 280 months. Location Location Details Encounter Type Encounter Number Reason For Visit Attending Provider ADM Date DC Date Status Disposition Source [facility] Outpatient Encounter [id number] 03/25 [facility]
--- OUTSIDE RECORDS SUMMARY | 2025-01-18 17:36 | XMS_ITS | Clinical Summary ---
Author Organization [facility] Address [address] [place] [address] Care Team Providers Care Solar Sales Assessor Name Role Phone Stephanie Middleton MD Primary Care Provider + Source Comments [facility],non-owned Affiliates and Associated Physician Practices is amultiple site organization consisting of ambulatory clinics and hospital sitesin [place], [place], [place] and [place]. This disclosure is being madepursuant to the Care Everywhere program and may not contain all information available regarding this patient. Last updated 18.[facility] Allergies No known active allergies Medications * [...] 01/01/2019 3:39 PM CDT Plan of Treatment Upcoming Encounters Date Type Department Care Team (Late st Contact Info) Description 03/02/2025 7:20 AM CDT Office Visit [facility] - Family Medicine [address], [facility] [address] [place] [phone] Bree Haile MD [address] [place] [address] Health Maintenance Due Date Last Done Comments [...] SCREENING FOR DIABETES 11/10/2021 11/10/2018 COVID-19 VACCINE (1 - 2023-2 5 season) 2024 01/16/2021 DEPRESSION SCREENING 10/14/2024 INFLUENZA VACCINE (Season Ended) 2025 HIB VACCINE Aged Out No longer eligi ble based on patient's age to complete this topic HPV VACCINE Aged Out No longer eligi ble based on patient's age to complete this topic MENINGOCOCCAL (Group B) VACC INE SHARED DECISION-MAKING Aged Out No longer eligibl e based on patient's age to complete this topic MENINGOCOCCAL GROUPS A/C/Y/W VACCINE Aged Out No longer eligible b ased on patient's age to complete this topic Procedures Procedure Name Priority Date/Time Associated Diagnosis Comments BASIC METABOLIC PANEL (CALCIUM TOTAL) STAT 11/10/2018 2:02 PM PLANT HE[employer] CARE TECHNICIAN Pre-op testing from Last 3 Months or Most Recently Relevant to Health Maintenance Results * BASIC METABOLIC PANEL (CALCIUM TOTAL) (11/10/2018 2:02 PM PLANT HE[employer] CARE TECHNICIAN) Glucose 94 74 - 106 mg/dL 11/10/2018 2:58 PM PLANT HE[employer] CARE TECHNICIAN [facility] Sodium 139 136 - 145 mmol/L 11/10/2018 2:58 PM PLANT HE[employer] CARE TECHNICIAN [facility] Potassium 3.5 3.5 - 5.1 mmol/L 11/10/2018 2:58 PM PLANT HE[employer] CARE TECHNICIAN [facility] Chloride 104 98 - 107 mmol/L 11/10/2018 2:58 PM PLANT HE[employer] CARE TECHNICIAN [facility] CO2 27 22 - 31 mmol/L 11/10/2018 2:58 PM PLANT HE[employer] CARE TECHNICIAN [facility] Calcium 8.6 8.5 - 10.1 mg/dL 11/10/2018 2:58 PM PLANT HE[employer] CARE TECHNICIAN [facility] Anion Gap 8 8 - 16 mmol/L 11/10/2018 2:58 PM PLANT HE[employer] CARE TECHNICIAN [facility] BUN 14 7 - 21 mg/dL 11/10/2018 2:58 PM PLANT HEALTH CARE TECHNICIAN [facility] Creatinine 0.86 0.50 - 1.30 mg/dL 11/10/2018 2:58 PM PLANT HE[employer] CARE TECHNICIAN [facility] eGFR by MDRD >60 >60 mL/min/1.7 3m2 11/10/2018 2:58 PM PLANT HE[employer] CARE TECHNICIAN [facility] eGFR by MDRD >60 >60 mL/min/1.7 3m2 11/10/2018 2:58 PM PLANT HE[employer] CARE TECHNICIAN [facility] Blood BLOOD SPECIMEN / Unknown Venipuncture / Unknown 11/10/2018 2:02 PM PLANT HE[employer] CARE TECHNICIAN 11/10/2018 2:24 PM PLANT HE[employer] CARE TECHNICIAN Glenn Corona MD LAB - CHEMISTRY MARTHA DA SILVA [facility] [address] [place] [address] from Last 3 Months or Most Recently Relevant to Health Maintenance Advance Directives * Full Code (Latest Code Status on File) Date Activated Date Inactivated Comments 11/14/2018 7:11 AM 11/14/2018 2:30 PM Care Teams Solar Sales Assessor Relationship Specialty Start Date End Date Stephanie Middleton MD [address] [place] [address] PCP - General 10/02/18
== END 2025-01-18 15:37 | disposition home or self-care (01) ==
PROVIDERS: PCP Family Medicine; Visit Provider Physician Assistant
DX: R91.1 Solitary pulmonary nodule (principal)
CPT/HCPCS: 71250